=== PATIENT | female | born 1985 ===

== ENCOUNTER 2018-01-06 02:43 | Outpatient (CLI) | payer BC | END 2018-01-06 23:59 | disposition home or self-care (01) | LOC: DIABETIC 02:43 | PROVIDERS: ATTEND Specialist | DX: O24.410 Gestational diabetes mellitus in pregnancy, diet controlled (principal); Z3A.33 33 weeks gestation of pregnancy | CPT/HCPCS: G0108 ==

== ENCOUNTER 2018-01-30 03:41 | Outpatient (CLI) | payer BC | END 2018-01-30 23:59 | disposition home or self-care (01) | LOC: DIABETIC 03:41 | PROVIDERS: ATTEND Specialist | DX: O24.410 Gestational diabetes mellitus in pregnancy, diet controlled (principal); Z3A.36 36 weeks gestation of pregnancy | CPT/HCPCS: G0108 ==

== ENCOUNTER 2018-02-13 09:11 | Outpatient (CLI) | payer BC | END 2018-02-13 23:59 | disposition home or self-care (01) | LOC: DIABETIC 09:11 | PROVIDERS: ATTEND Specialist | DX: O24.419 Gestational diabetes mellitus in pregnancy, unspecified control (principal); Z3A.00 Weeks of gestation of pregnancy not specified | CPT/HCPCS: G0108 ==